=== PATIENT | male | born 1970 | race Caucasian/White ===

== ENCOUNTER 2024-05-09 10:34 | Outpatient (CLI) | payer OTHER | END 2024-05-09 10:35 | disposition home or self-care (01) | LOC: CSHRAD 10:34 | PROVIDERS: ATTEND Specialist | DX: K44.9 Diaphragmatic hernia without obstruction or gangrene (principal); K21.9 Gastro-esophageal reflux disease without esophagitis | CPT/HCPCS: 74220 ==